=== PATIENT | female | born 1990 | race Caucasian/White ===

== ENCOUNTER 2017-01-21 | Inpatient (IN) | payer OTHER ==
[~2017-01-21] VITALS: Ht 162.6 cm; Wt 61.7 kg
--- NOTE | ~2017-01-21 | PA ---
Unit #: [id number] #: [id number] Patient: JAVAN GOLDEN [id number] [place] [address] [id number] I MR#: [id number] NAME: JAVAN GOLDEN. ROOM: [facility] Age: 26 Sex: F Admission Date: 01/21/2017 : 1990 Date of Assessment: 01/21/2017 Attending Physician: Brandon Carranza M.D. Admitting Physician: Brandon Carranza M.D. Primary Care Physician: Generic Doctor Not In System PSYCHIATRIC ASSESSMENT IDENTIFYING INFORMATION The patient is a 26-year-old white female with a history of polysubstance dependence. CHIEF COMPLAINT None given. INFORMANT(S) Chart. Patient cannot be aroused for interview. HISTORY OF PRESENT ILLNESS The patient is a 26-year-old white female admitted after presenting to this facility reporting abuse of multiple substances including Xanax, Adderall, alcohol, methamphetamine, heroin, and cannabis. The patient reports that she is "tired of living like this." She is currently living with her sister after having lost her apartment secondary to unemployment. The patient was reporting no suicidal or homicidal ideation. She has no history of prior psychiatric treatment apart from a visit to [facility] for "depression." The patient is currently on no prescribed psychotropic medications, however. When seen today, the patient is sleeping soundly and cannot be aroused for interview. PAST PSYCHIATRIC HISTORY Reviewed, no changes. PAST MEDICAL HISTORY Noncontributory. MEDICATION(S) None reported. ALLERGIES Ibuprofen, sulfa, latex. FAMILY HISTORY Noncontributory. SOCIAL HISTORY The patient has an associates degree in psychology. She lives with her sister. She is a smoker and reports extensive substance use history. As noted previously, she denies history of intravenous drug use. MENTAL STATUS EXAMINATION Examination at this time reveals the patient to be a soundly sleeping Unit #: [id number] #: [id number] Patient: JAVAN GOLDEN white female. Multiple attempts to arouse the patient were unsuccessful. ASSETS AND LIABILITIES The patient's assets are to be assessed. Liabilities: Ongoing substance use. DIAGNOSTIC IMPRESSION 1. Sedative hypnotic use disorder. 2. Psychostimulant use disorder. 3. Alcohol use disorder. 4. Methamphetamine use disorder. 5. Opioid use disorder. 6. Cannabis use disorder. TREATMENT PLAN The patient remains hospitalized for safety and stabilization. Routine detoxification protocol to cover both opioids and alcohol and sedative hypnotics has been initiated. The patient will participate in appropriate order of milieu activities. ESTIMATED LENGTH OF STAY 3 to 5 days. Dictated by... Brandon Carranza M.D. David TD: 01/21/2017 12:59 JOB #: [id number] PSYCHIATRIC ASSESSMENT Page 1 of 1 X Brandon Carranza MD X PSYCHIATRIC ASSESSMENT
--- NOTE | ~2017-01-21 | PN ---
Unit #: [id number] #: [id number] Patient: JAVAN GOLDEN [id number] [facility] [address] [place] [address] [id number] I MR#: [id number] NAME: JAVAN GOLDEN ROOM: [facility] Age: 26 Sex: F Admission Date: 01/21/2017 : 1990 Attending Physician: Brandon Carranza M.D. Admitting Physician: Brandon Carranza M.D. Primary Care Physician: Generic Doctor Not In System [facility] PROGRESS NOTES DATE 01/23/2017 DISCUSSION The patient is tearful today and is complaining of increased anxiety. I will add p.r.n. vistaril to the previously prescribed Latuda. Dictated by... Brandon Carranza M.D. CB/cesar TD: 01/23/2017 23:17 JOB #: [id number] [facility] PROGRESS NOTES Page 1 of 1 X Brandon Carranza MD X PROGRESS NOTE
--- NOTE | ~2017-01-21 | PN ---
Unit #: [id number] #: [id number] Patient: JAVAN GOLDEN [id number] [facility] [address] [place] [address] [id number] MR#: [id number] NAME: JAVAN GOLDEN. ROOM: [facility] Age: 26 Sex: F Admission Date: 01/21/2017 : 1990 Attending Physician: Brandon Carranza M.D. Admitting Physician: Brandon Carranza M.D. Primary Care Physician: Rosana Doctor Not In System [facility] PROGRESS NOTES DATE 01/22/2017 DISCUSSION The patient continues to complain of significant symptoms of physical opioid detox during today's interview. We continue her current detoxification protocol. The patient does report a history which seems consistent with a bipolar spectrum disorder. In as much I will go ahead and start the patient on Latuda 20 mg daily to address her bipolar depressive symptoms. She reports previous unsuccessful trials of lamotrigine and Depakote but it seems unlikely that the patient was ever able to give either these medications and adequate trial given her ongoing substance use. She does have, as noted previously report a history which does seem consistent with a bipolar spectrum disorder and it has been diagnosed by two different practitioners with this disorder hence the initiation of Latuda. Dictated by... Brandon Carranza M.D. CB/cesar TD: 01/22/2017 23:06 JOB #: [id number] [facility] PROGRESS NOTES Page 1 of 1 X Brandon Carranza MD X PROGRESS NOTE
--- NOTE | ~2017-01-21 | PN ---
Unit #: [id number] #: [id number] Patient: JAVAN GOLDEN [id number] [facility] [address] [place] [address] [id number] I MR#: [id number] NAME: JAVAN GOLDEN. ROOM: [facility] Age: 26 Sex: F Admission Date: 01/21/2017 : 1990 Attending Physician: Brandon Carranza M.D. Admitting Physician: Brandon Carranza M.D. Primary Care Physician: Generic Doctor Not In System [facility] PROGRESS NOTES DATE 01/26/2017 DISCUSSION The patient appears improved today. She reports reduction in symptoms of withdrawal and is tolerating Latuda stating that she "feels like herself for the first time in a year and a half" today. She is agreeable with a plan for follow up in the intensive outpatient program and should she sustain progress discharge will likely take place tomorrow. Dictated by... Brandon Carranza M.D. CB/tiana TD: 01/26/2017 17:58 JOB #: [id number] [facility] PROGRESS NOTES Page 1 of 1 X Brandon Carranza MD X PROGRESS NOTE
--- NOTE | ~2017-01-21 | HP ---
Unit #: [id number] #: [id number] Patient: JAVAN GOLDEN [id number] [place] [address] [id number] MR#: [id number] NAME: JAVAN GOLDEN. ROOM: [facility] Age: 26 Sex: F Admission Date: 01/21/2017 : 1990 Attending Physician: Brandon Carranza M.D. Admitting Physician: Brandon Carranza M.D. Primary Care Physician: Generic Doctor Not In System HISTORY AND PHYSICAL HISTORY OF PRESENT ILLNESS Javan is a 26-year-old female admitted on 01/21/2017 to [facility] for detox from alcohol, meth, heroin and Xanax. PAST MEDICAL HISTORY None. PAST SURGICAL HISTORY None documented. ALLERGIES Ibuprofen, sulfa and latex. SOCIAL HISTORY Smokes 1 pack of cigarettes daily. Binge alcohol use and daily use of meth, heroin, Xanax and marijuana. She is currently single and living with her sister. FAMILY HISTORY Noncontributory. REVIEW OF SYSTEMS CONSTITUTIONAL: No fever or chills. HEENT: Denies any sore throat, ear pain or runny nose. CARDIOVASCULAR: Denies chest pain, irregular heart rhythm or palpitations. CHEST: Denies shortness of breath or cough. No hemoptysis. GASTROINTESTINAL: Denies nausea, vomiting, diarrhea or chronic constipation. ENDOCRINE: Denies history of increased thirst or urination. No recent significant weight loss or gain. GENITOURINARY: Denies dysuria, frequency, or hematuria. SKIN: Denies any rashes. HEMATOLOGIC: Denies history of increased bleeding or bruising. MUSCULOSKELETAL: Denies any hot, swollen joints. No generalized muscle pain. NEUROLOGIC: Denies problems with vision or speech. No frequent, severe headaches. No numbness, tingling or weakness in any extremities. Denies loss of bladder or bowel control. CURRENT MEDICATIONS None. PHYSICAL EXAMINATION Unit #: [id number] #: [id number] Patient: JAVAN GOLDEN GENERAL: Alert, oriented, in no acute distress. VITAL SIGNS: Blood pressure 113/80, heart rate 89, respirations 16, temperature 98.2. HEIGHT: 5 feet 4. WEIGHT: 136 pounds. SKIN: Warm and dry without rash or lesion. HEENT: Normocephalic. TMs not viewed. Oral and nasal passages clear. Conjunctivae clear. PERRLA. EOMs intact. NECK: Supple without lymphadenopathy or thyromegaly. HEART: Regular rate and rhythm without murmur. LUNGS: Clear. ABDOMEN: Soft, nontender, without masses or hepatosplenomegaly. : Not done. EXTREMITIES: No evidence of cyanosis, clubbing or edema. Moves all without focal deficit. NEUROLOGICAL: Grossly within normal limits. Cranial Nerves: II: Visual arias are intact. III, IV AND : Extraocular movements are intact. Pupils are equal, round and reactive to light. V: Facial sensation is grossly normal. VII: Facial movements and expression are normal. VIII: Auditory acuity grossly intact. IX, X: Uvula is midline. Phonation is normal. XI: Patient shrugs shoulders and turns head normally. XII: Tongue protrudes in the midline. Sensory and Motor Function: Sensory and motor sensation is grossly normal. Motor: moves all extremities well. Coordination: Gait is normal. Deep Tendon Reflexes: Intact. IMPRESSION Psychiatric admission. RECOMMENDATIONS PSYCHIATRIC: Per psychiatrist. MEDICAL: No contraindication to participate in facility's activities. MEDICAL PROGNOSIS Good. MEDICAL CONDITION Stable. Dictated by... Rohit Lemus/tiana TD: 01/21/2017 16:18 JOB #: [id number] Unit #: [id number] #: [id number] Patient: JAVAN GOLDEN HISTORY AND PHYSICAL Page 1 of 1 X BEATRIS RIVERA APRN X HISTORY AND PHYSICAL
--- NOTE | ~2017-01-21 | DS ---
Unit #: [id number] #: [id number] Patient: JAVAN GOLDEN [id number] [place] [address] [id number] I MR#: [id number] NAME: JAVAN GOLDEN. ROOM: [facility] Age: 26 Sex: F Admission Date: 01/21/2017 : 1990 Discharge Date: 01/27/2017 Attending Physician: Brandon Carranza M.D. Primary Care Physician: Generic Doctor Not In System DISCHARGE SUMMARY REASON FOR ADMISSION The patient is a 26-year-old white female with history of polysubstance dependence and bipolar depression, admitted with suicidal ideation and for detox. HOSPITAL COURSE The patient was admitted to the [facility] unit and placed on suicide precautions. She did present with history which seemed consistent with a bipolar spectrum disorder and was therefore begun on Latuda 20 mg daily. She tolerated the medication without complaint. The patient's stay in the hospital was an otherwise uneventful one. Her detox went smoothly. She participated actively within the therapeutic milieu. On 01/27/2017, the patient was agreeable with plan for followup in the intensive outpatient program provided by this facility and as per her request, discharge was ordered. FINAL DIAGNOSES Bipolar disorder, most recent episode, depressed; sedative hypnotic use disorder; psychostimulant use disorder; alcohol use disorder; methamphetamine use disorder; opioid use disorder; cannabis use disorder. DISPOSITION ON DISCHARGE The patient is discharged on the following medications: Latuda 20 mg daily for depression and Vistaril 50 mg q.6 hours p.r.n. anxiety. DISCHARGE INSTRUCTIONS No dietary or physical restrictions were placed upon the patient at the time of discharge. FOLLOWUP Followup will take place in the intensive outpatient program provided by this facility and through the auspices of [facility]. PROGNOSIS The patient's prognosis is considered fair. Dictated by... Brandon Carranza M.D. CB/anuel Unit #: [id number] #: [id number] Patient: JAVAN GOLDEN TD: 01/27/2017 18:25 JOB #: [id number] DISCHARGE SUMMARY Page 1 of 1 X Brandon Carranza MD X DISCHARGE SUMMARY
--- NOTE | ~2017-01-21 | PN ---
Unit #: [id number] #: [id number] Patient: JAVAN GOLDEN [id number] [facility] [address] [place] [address] [id number] MR#: [id number] NAME: JAVAN GOLDEN ROOM: [facility] Age: 26 Sex: F Admission Date: 01/21/2017 : 1990 Attending Physician: Brandon Carranza M.D. Admitting Physician: Brandon Carranza M.D. Primary Care Physician: Generic Doctor Not In System [facility] PROGRESS NOTES DATE 01/25/2017 DISCUSSION The patient is abed but arouses without difficulty today. She remains dysphoric and flat but reports some reduction in physical symptoms of substance withdrawal. She is reporting some reduction in suicidal ideation and is tolerating Latuda without complaint. This physician has spent some time today discussing with the patient her probable diagnosis, but the fact that her ongoing substance use makes a certain diagnosis less than credible with regard to a bipolar diagnosis. Dictated by... Brandon Carranza M.D. CB/rodrigo TD: 01/25/2017 14:29 JOB #: [id number] [facility] PROGRESS NOTES Page 1 of 1 X Brandon Carranza MD X PROGRESS NOTE
--- NOTE | ~2017-01-21 | PN ---
Unit #: [id number] #: [id number] Patient: JAVAN GOLDEN [id number] [facility] [address] [place] [address] [id number] I MR#: [id number] NAME: JAVAN GOLDEN ROOM: [facility] Age: 26 Sex: F Admission Date: 01/21/2017 : 1990 Attending Physician: Brandon Carranza M.D. Admitting Physician: Brandon Carranza M.D. Primary Care Physician: Generic Doctor Not In System [facility] PROGRESS NOTES DATE 01/24/2017 DISCUSSION The patient continues to complain of severely depressed mood and hopelessness. She is reporting some reduction in suicidal ideation and her detox symptoms seem to be mitigating. I will ask her clinical social work therapist to see her regarding post discharge treatment planning. Dictated by... Brandon Carranza M.D. AWAIS/tiana TD: 01/24/2017 18:40 JOB #: [id number] [facility] PROGRESS NOTES Page 1 of 1 X Brandon Carranza MD PROGRESS NOTE
[2017-01-22 14:23] LABS: BASOPHIL% 0.8 % (0-2.5); EOSINOPHIL# 0.2 X10e3 (0-0.7); EOSINOPHIL% 3.1 % (0.0-7.0); HEMATOCRIT 39.3 % (35.0-45.0); HEMOGLOBIN 13.7 gm/dL (12.0-16.0); LYMPHOCYTE# 1.8 X10e3 (1.0-3.5); LYMPHOCYTE% 33.3 % (17.0-45.0); MEAN CELL VOLUME 92.3 FL (83-96); MEAN CORPUSCULAR HEMOGLOBIN 32.2 PG (28-34); MEAN CORPUSCULAR HGB CONC 34.9 g/dL (30-36); MEAN PLATELET VOLUME 10.4 FL (6.5-11.5); MONOCYTE# 0.3 X10e3 (0-1.0); MONOCYTE% 5.5 % (3.0-12.0); NEUTROPHIL# 3.1 X10e3 (1.5-7.1); NEUTROPHIL% 57.3 % (40-75); PLATELET COUNT 176 X10e3 (140-420); RED BLOOD COUNT 4.26 X10e (3.90-5.30); RED CELL DISTRIBUTION WIDTH 13.9 % (11.0-15.5); WHITE BLOOD COUNT 5.5 X10e3 (4.0-10.5)
[2017-01-22 14:25] LABS: DIFF IND NO
[2017-01-22 15:48] LABS: ALBUMIN SERUM 3.6 g/dL (3.5-5.0); BILIRUBIN,TOTAL 0.6 mg/dL (0.2-2.0); BUN/CREATININE RATIO 11.25; CALCIUM SERUM 9.1 mg/dL (8.4-10.2); CREATININE SERUM 0.8 mg/dL (0.6-1.4); GLOM FILT RATE Estimated 101.8 mL/min (>60); PROTEIN TOTAL SERUM 6.1 g/dL (6.0-8.3)
[2017-01-25 12:40] LABS: URINE APPEARANCE CLEAR; URINE BILIRUBIN NEG (NEG); URINE BLOOD NEG (NEG); URINE COLOR DK YELLOW; URINE GLUCOSE NEG (NEG); URINE KETONE NEG (NEG); URINE LEUKOCYTE ESTERASE NEG (NEG); URINE NITRATE NEG (NEG); URINE PH 7.5 (5-8); URINE PROTEIN NEG (NEG); URINE UROBILINOGEN 0.2 MG/DL (NEG)
[2017-01-25 13:04] LABS: AMPHETAMINE NEG (NEG); BARBITURATES NEG (NEG); BENZODIAZEPINES POS (NEG); COCAINE NEG (NEG); MARIJUANA POS (NEG); OPIATES NEG (NEG); TRICYCLIC ANTIDEPRESSANTS NEG (NEG); U METHADONE NEG (NEG)
== END 2017-01-27 17:00 | DRG 897 ==
LOC: P1E 03:24
PROVIDERS: Specialist
PROC: HZ2ZZZZ Detoxification Services for Substance Abuse Treatment (ICD-10-PCS; principal; 2017-01-21)
DX: F13.20 Sedative, hypnotic or anxiolytic dependence, uncomplicated (principal); F11.20 Opioid dependence, uncomplicated; F15.20 Other stimulant dependence, uncomplicated; F10.20 Alcohol dependence, uncomplicated; F12.20 Cannabis dependence, uncomplicated; Z88.2 Allergy status to sulfonamides; Z91.040 Latex allergy status; F17.210 Nicotine dependence, cigarettes, uncomplicated; F31.9 Bipolar disorder, unspecified
CPT/HCPCS: 80053; 80307; 81003; 84703; 85025